=== PATIENT | female | born 1975 | race Caucasian/White ===

== ENCOUNTER 2018-07-28 20:54 | Inpatient (IN) | payer MEDICAID ==
[~2018-07-28] VITALS: Ht 162.6 cm; Wt 85.7 kg
[2018-07-28 21:00] VITALS: BP_SYST 125
--- NOTE | 2018-07-28 21:20 | NUR ---
Placed in room 1. Placed on pvc monitor, blood pressure machine and pulse oximeter. To gown for exam. Side rails up. Report given to Cherelle HARP.
--- NOTE | 2018-07-28 21:25 | NUR ---
Patient came in with acute pain which started on the L side which radiates to the upper back. Pt noticed the pain while she was driving. She states she also has a DAMON which radiates to the right of her face. Patient denies N/V/D. No other complaints/injuries noted. Will cont. to monitor.
--- NOTE | 2018-07-28 21:30 | NUR ---
ER at bedside examining patient.
--- NOTE | 2018-07-28 21:45 | NUR ---
# 20 gauge angiocath placed to RAC. Use of asceptic technique. Opsite placed over site. Blood return noted. Blood for lab drawn from site. Flushed with 10 cc of normal saline. No evidence of infiltration noted. Patient tolerated well.
[2018-07-28] MEDS ORDERED: ASPIRIN 81 MG TAB.CHEW PO ONE (22:30)
[2018-07-28] MEDS ORDERED: ACETAMINOPHEN 325 MG TABLET PO ONE (22:30)
--- NOTE | 2018-07-28 22:30 | NUR ---
Patient medicated with ASA and tylenol PO per MD order. Patient tolerated well. WIll continue to monitor.
[2018-07-28 23:01] LABS: BASOPHILS # (AUTO) 0.1 K/uL (0.0-0.2); BASOPHILS % (AUTO) 0.7 % (0.0-2.0); EOSINOPHILS # (AUTO) 0.1 K/uL (0.0-0.4); EOSINOPHILS % (AUTO) 1.3 % (0.0-4.0); HEMATOCRIT 41.7 % (36-48); HEMOGLOBIN 14.1 g/dL (12.0-16.0); LYMPHOCYTES % (AUTO) 21.9 % (20.5-51.5); MEAN CORPUSCULAR HEMOGLOBIN 31 pg (27-31); MEAN CORPUSCULAR HGB CONC 34 % (32-36); MEAN CORPUSCULAR VOLUME 92 fL (79.0-98.0); MONOCYTES # (AUTO) 0.4 K/uL (0.0-1.0); MONOCYTES % (AUTO) 4.5 % (1.7-9.3); NEUTROPHILS # (AUTO) 6.8 K/uL (1.8-7.7); NEUTROPHILS % (AUTO) 71.6 % (40.0-70.0); PLATELET COUNT (AUTO) 362 K/uL (130-430); RED BLOOD CELL COUNT(AUTO) 4.54 MIL/uL (4.2-6.2); RED CELL DISTRIBUTION WIDTH 12.1 % (9.0-15.0); WHITE BLOOD COUNT (AUTO) 9.4 K/uL (4.8-10.8)
[2018-07-28 23:38] LABS: CALCIUM 8.9 mg/dL (8.4-11.0); CREATININE 0.8 mg/dL (0.55-1.30); POTASSIUM 3.8 mmol/L (3.5-5.1)
[2018-07-28 23:43] LABS: ALBUMIN 3.8 g/dL (3.4-4.8); TOTAL BILIRUBIN 0.4 mg/dL (0.0-1.0)
[2018-07-28 23:50] LABS: INR 0.9 (0.8-1.2); PROTHROMBIN TIME 9.6 SECS (9.5-12.5)
[2018-07-28 23:56] LABS: BILIRUBIN,URINE NEGATIVE (NEGATIVE); BLOOD, URINE TRACE (NEGATIVE); CLARITY/URINE CLEAR (CLEAR); COLOR,URINE YELLOW (YELLOW); GLUCOSE,URINE NEGATIVE (NEGATIVE); KETONES,URINE NEGATIVE (NEGATIVE); LEUKOCYTE ESTERASE ,URINE TRACE (NEGATIVE); NITRITE, URINE NEGATIVE (NEGATIVE); PROTEIN URINE NEGATIVE (NEGATIVE); UROBILINOGEN,URINE 0.2 (0.2-1.0)
[2018-07-29] MEDS ORDERED: MORPHINE 2 MG/ML INJ. SYRINGE IVP PRN ×3 (00:15→09:45)
--- NOTE | 2018-07-29 00:24 | NUR ---
Patient will be admitted to care of Dr. Ortega. Admitted to unit TELE. Will go to room 135 . Belongings list completed. Summary report printed. Report will be given at bedside.
[2018-07-29 00:25] LABS: BACTERIA,URINE FEW /HPF (None Seen)
[2018-07-29 00:30] VITALS: BP_SYST 126
--- NOTE | 2018-07-29 00:30 | NUR ---
ADMISSION NOTE Received patient from ER via betzy, received report from LOYD FAJARDO. Patient admitted with diagnosis of CHEST PAIN. Patient oriented to hospital routine, call light, toileting and safety-patient verbalized understanding.
--- NOTE | 2018-07-29 00:30 | NUR ---
Transfer to TELE via ACLS protocol. Licensed nurse present. IV present no signs or symptoms of infiltration. Report given to LOYD Shaw.
[2018-07-29 00:31] VITALS: BP_SYST 126
--- NOTE | 2018-07-29 01:10 | NUR ---
OPENING NOTE RECEIVED PT ENDORSEMENT REPORT FROM NURSE BUTTERFIELD AT BEDSIDE. PT IS AOX4, PT RESTING COMFORTABLY IN BED WITH EYES OPEN. PT'S CHEST RISE EVEN AND UNLABORED. NO COMPLAINTS OF PAIN AT THIS TIME. NO DISTRESS NOTED. NO RESPIRATORY DISTRESS NOTED. PT'S IV ON RIGHT AC 20G. PT ORIENTED TO HOSPITAL ROOM, PT INSTRUCTED HOW TO USE CALL LIGHT AND ROOM PHONE, PT VERBALIZED UNDERSTANDING. PT AWARE TO CALL FOR ASSISTANCE. PT INSTRUCTED ON PT SAFETY, PT VERBALIZED UNDERSTANDING. SAFETY MEASURES IN PLACE, CALL LIGHT AND ROOM PHONE WITHIN REACH, BED BRAKES LOCKED, BED ALARM ON, BED RAILS UP X2, BED IN LOWEST POSITION, BEDSIDE TABLE WITHIN REACH. NO NEEDS AT THIS TIME, WILL CONTINUE TO MONITOR PT AND CONTINUE POC.
--- NOTE | 2018-07-29 01:54 | NUR ---
CONSULT CONSULT CALLED FOR DR. CHENG I SPOKE WITH NORA EXCHANGE REQUESTING CONSULT: DR. BINGHAM REASON FOR CONSULT: CHEST PAIN DISTRICT EXTENSION SERVICE AGENT PHONE NUMBER: [phone]
--- NOTE | 2018-07-29 02:51 | NUR ---
RN ROUNDS PT RESTING COMFORTABLY IN BED WITH EYES CLOSED. PT'S CHEST RISE EVEN AND UNLABORED. NO DISTRESS NOTED. NO RESPIRATORY DISTRESS NOTED. SAFETY MEASURES IN PLACE, CALL LIGHT AND ROOM PHONE WITHIN REACH, BED BRAKES LOCKED, BED ALARM ON, BED RAILS UP X2, BED IN LOWEST POSITION, BEDSIDE TABLE WITHIN REACH. NO NEEDS AT THIS TIME, WILL CONTINUE TO MONITOR PT AND CONTINUE POC.
--- NOTE | 2018-07-29 04:12 | NUR ---
RN ROUNDS PT RESTING COMFORTABLY IN BED WITH EYES CLOSED. PT'S CHEST RISE EVEN AND UNLABORED. NO DISTRESS NOTED. NO RESPIRATORY DISTRESS NOTED. NO S/S OF PAIN NOTED. NO NEEDS AT THIS TIME. SAFETY MEASURES IN PLACE. WILL CONTINUE TO MONITOR PT AND CONTINUE POC.
--- NOTE | 2018-07-29 06:55 | NUR ---
CLOSING NOTE WILL ENDORSE PT REPORT TO DAY SHIFT NURSE AT BEDSIDE. PT IS AOX4, PT RESTING COMFORTABLY IN BED WITH EYES CLOSED. PT'S CHEST RISE EVEN AND UNLABORED. NO COMPLAINTS OF PAIN THROUGHOUT THE SHIFT. NO DISTRESS NOTED, NO RESPIRATORY DISTRESS NOTED THROUGHOUT SHIFT. PT'S IV SL. ALL NEEDS MET THROUGHOUT SHIFT. ALL SCHEDULED MEDICATIONS ADMINISTERED SCHEDULED, PT TOLERATED WELL. PT ORIENTED TO HOSPITAL ROOM, PT INSTRUCTED HOW TO USE CALL LIGHT AND ROOM PHONE, PT VERBALIZED UNDERSTANDING. PT AWARE TO CALL FOR ASSISTANCE. PT INSTRUCTED ON PT SAFETY, PT VERBALIZED UNDERSTANDING. SAFETY MEASURES IN PLACE, CALL LIGHT AND ROOM PHONE WITHIN REACH, BED BRAKES LOCKED, BED ALARM ON, BED RAILS UP X2, BED IN LOWEST POSITION, BEDSIDE TABLE WITHIN REACH. WILL CONTINUE TO MONITOR PT AND CONTINUE POC.
[2018-07-29 08:00] VITALS: BP_SYST 128
--- NOTE | 2018-07-29 08:00 | NUR ---
initial notes rec patient awake alert with ivl on the r ac intact. no infiltration noted. denies chest pain when asked. resp easy and unlabored. call light within reached and knows when to call for assistance. bed in low position and side rails up and locked.
[2018-07-29] MEDS ORDERED: ENOXAPARIN SODIUM 40 MG/0.4 ML SYRINGE SUBCUT ONE (09:00)
[2018-07-29] MEDS ORDERED: ACETAMINOPHEN 500 MG TABLET ONE ×2 (09:10)
[2018-07-29] MEDS ORDERED: ACETAMINOPHEN 500 MG TABLET PO ONE (09:15)
[2018-07-29] MEDS ORDERED: LORazepam 2 MG/ML VIAL IVP PRN (09:45)
[2018-07-29] MEDS ORDERED: DOCUSATE SODIUM 100 MG CAPSULE PO PRN (09:45)
[2018-07-29] MEDS ORDERED: POTASSIUM CHLORIDE 20 MEQ TAB.PRT.SR PO PRN (09:45)
[2018-07-29] MEDS ORDERED: ONDANSETRON HCL 4 MG/2 ML VIAL IVP PRN (09:45)
[2018-07-29] MEDS ORDERED: MAGNESIUM SULFATE 50 ML IV PRN (09:45)
[2018-07-29] MEDS ORDERED: ZOLPIDEM TARTRATE 5 MG TABLET PO PRN (09:45)
[2018-07-29] MEDS ORDERED: MUPIROCIN 2% TOPICAL OINTMENT 22 GM NS PRN (09:45)
[2018-07-29] MEDS ORDERED: SUMAtriptan SUCCINATE 50 MG TABLET PO ONE (09:45)
[2018-07-29] MEDS ORDERED: ACETAMINOPHEN 325 MG TABLET PO PRN (09:45)
[2018-07-29] MEDS ORDERED: PANTOPRAZOLE SODIUM 40 MG TAB PO ONE (10:00)
--- NOTE | 2018-07-29 10:42 | NUR ---
DC Planning: Updated pt's status and faxed FS / ED notes to Shawn at [facility] fax# [phone]. Informed dr. Ortega, the plan for Stress Test is not approved. Shawn will schedule the procedure for out patient this pm or tomorrow. Dr Ortega to revaluate for the disposition.
--- NOTE | 2018-07-29 10:54 | NUR ---
DC Planning: Updated pt's status and faxed FS / ED notes to Shawn at [facility] fax# [phone]. Informed dr[address] Ortega, the plan for Stress Test is not approved. Shawn will schedule the procedure for out patient this pm or tomorrow. Dr Ortega to revaluate for the disposition.
[2018-07-29 12:06] VITALS: BP_SYST 128
[2018-07-29 12:31] VITALS: BP_SYST 118
--- NOTE | 2018-07-29 13:12 | NUR ---
DC Planning: Per Jennifer/[facility]: transfer pt to [facility], room # 320B RN to report # [phone], address: [address] [place] [id number]. Booked ALS transfer with Nisa at [facility],#[phone], She provided the first available fruit or nut picker time at 2:45pm. LOYD Barriga made aware. Addendum: 07/29/18 at 1340 by Marleen Mares RN >> CM notified pt in room, she agreed with the transfer.
--- NOTE | 2018-07-29 15:00 | NUR ---
rounds dr kapoor was called and informed that patient will be transferred to contracted hospital at [facility]. report given to rosette matute at [facility]. awaiting for ambulance.
[2018-07-29 16:39] VITALS: BP_SYST 121
--- NOTE | 2018-07-29 16:41 | NUR ---
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 will accompany patient in the ambulance. no sob noted. no c/o chest pain . ambulatory with steady gait. stable and needs attended.
[2018-07-29] MEDS ORDERED: HEPARIN SODIUM,PORCINE 5000 UNITS/ML VIAL SUBCUT SCH (21:00)
[2018-07-30] MEDS ORDERED: PANTOPRAZOLE SODIUM 40 MG TAB PO SCH (09:00)
== END 2018-07-29 16:50 | disposition short-term general hospital (02) | DRG 243 ==
LOC: SED 20:54 → STU 07-29 00:12
PROVIDERS: ADMIT General Practice; ATTEND General Practice
DX: K21.9 Gastro-esophageal reflux disease without esophagitis (principal); E66.9 Obesity, unspecified; F41.9 Anxiety disorder, unspecified; G43.919 Migraine, unspecified, intractable, without status migrainosus; M19.90 Unspecified osteoarthritis, unspecified site; Z68.32 Body mass index [BMI] 32.0-32.9, adult; Z83.438 Family history of other disorder of lipoprotein metabolism and other lipidemia
CPT/HCPCS: 36415; 71045; 80053; 81000-TC; 81025; 84484; 85025; 85610-TC; 85730-TC; 87086; 90656; 93005; 99285; J1650

== ENCOUNTER 2018-12-09 23:47 | Emergency (ER) | payer MEDICAID ==
[~2018-12-09] VITALS: Ht 162.6 cm; Wt 88.5 kg
[2018-12-09 23:51] VITALS: BP_SYST 128
[2018-12-10] MEDS ORDERED: KETOROLAC TROMETHAMINE 60 MG/2 ML VIAL IM ONE
[2018-12-10 01:38] VITALS: BP_SYST 108
== END 2018-12-10 01:38 | disposition home or self-care (01) ==
LOC: SED 23:47
DX: S29.012A Strain of muscle and tendon of back wall of thorax, initial encounter (principal); G43.909 Migraine, unspecified, not intractable, without status migrainosus; R03.0 Elevated blood-pressure reading, without diagnosis of hypertension; X58.XXXA Exposure to other specified factors, initial encounter; Y93.89 Activity, other specified; Y92.89 Other specified places as the place of occurrence of the external cause; Y99.8 Other external cause status
CPT/HCPCS: 71045; 81002; 81025; 93005; 96372; 99283; J1885

== ENCOUNTER 2019-07-02 13:48 | Emergency (ER) | payer MEDICAID ==
[~2019-07-02] VITALS: Ht 165.1 cm; Wt 89.4 kg
[2019-07-02 14:08] VITALS: BP_SYST 124
[2019-07-02] MEDS ORDERED: LORazepam 2 MG/ML VIAL IM ONE (14:45)
[2019-07-02 15:01] VITALS: BP_SYST 124
== END 2019-07-02 15:00 | disposition home or self-care (01) ==
LOC: SED 13:48
DX: F41.9 Anxiety disorder, unspecified (principal)
CPT/HCPCS: 99283

== ENCOUNTER 2019-11-26 16:50 | Emergency (ER) | payer MEDICAID ==
[~2019-11-26] VITALS: Ht 162.6 cm; Wt 86.2 kg
[2019-11-26 16:58] VITALS: BP_SYST 137
--- NOTE | 2019-11-26 17:31 | NUR ---
Patient to ER bed 05 to gown for evaluation. Side rails up.
--- NOTE | 2019-11-26 17:45 | NUR ---
pt arrives from home w/ increasing DAMON unrelived by over the counter meds
--- NOTE | 2019-11-26 17:56 | NUR ---
ER at bedside examining patient.
--- NOTE | 2019-11-26 17:57 | NUR ---
Patient transported to radiology via , accompanied by radiation oncology manager.
[2019-11-26] MEDS ORDERED: NACL 0.9% 1,000 ML IV ONE (18:45)
[2019-11-26] MEDS ORDERED: KETOROLAC TROMETHAMINE 15 MG VIAL IVP ONE (18:45)
[2019-11-26] MEDS ORDERED: PROCHLORPERAZINE EDISYLATE 10 MG/2 ML VIAL IVP ONE (18:45)
[2019-11-26] MEDS ORDERED: MAGNESIUM SULFATE 50 ML IV ONE (18:45)
--- NOTE | 2019-11-26 19:22 | NUR ---
Report given to Freddy HARP. Pt is in stable condition
--- NOTE | 2019-11-26 19:38 | NUR ---
Pt verbalizes improvement in H/A. No needs verbalized at this time.
[2019-11-26 21:54] VITALS: BP_SYST 128
--- NOTE | 2019-11-26 21:54 | NUR ---
Patient given written and verbal discharge instructions and verbalizes understanding. ER MD discussed with patient the results and treatment provided. Patient in stable condition. ID arm band removed. IV catheter removed intact and dressing applied, no active bleeding. Rx of Magnesium Gluconate and Vitamin B-12 given. Patient educated on pain management and to follow up with PMD. Pain Scale 0/10. Opportunity for questions provided and answered. Medication side effect fact sheet provided.
== END 2019-11-26 21:54 | disposition home or self-care (01) ==
LOC: SED 16:50
DX: G43.901 Migraine, unspecified, not intractable, with status migrainosus (principal)
CPT/HCPCS: 70450; 96365; 96375; 99284; J0780; J1885; J3475; J7030

== ENCOUNTER 2021-11-15 07:49 | Emergency (ER) | payer MEDICAID, SELFPAY ==
[~2021-11-15] VITALS: Ht 157.5 cm; Wt 90.7 kg
[2021-11-15 08:46] VITALS: BP_SYST 140
--- NOTE | 2021-11-15 09:30 | NUR ---
Patient triaged and placed in waiting room. VSS and patient appears in no acute distress at this time. Accompanied by self, awaiting available bed, and MD notified of need for MSE.
[2021-11-15] MEDS ORDERED: IBUP-1969 PO (10:00)
--- NOTE | 2021-11-15 10:00 | NUR ---
KANIKA Parada at bedside examining patient.
--- NOTE | 2021-11-15 10:15 | NUR ---
pt returned to ED lobby tolerated XR well.
== END 2021-11-15 11:20 | disposition home or self-care (01) ==
LOC: SED 07:49
DX: S40.012A Contusion of left shoulder, initial encounter (principal); Z79.899 Other long term (current) drug therapy; W22.8XXA Striking against or struck by other objects, initial encounter; Y93.89 Activity, other specified; Y92.89 Other specified places as the place of occurrence of the external cause; Y99.8 Other external cause status
CPT/HCPCS: 73030; 99283

== ENCOUNTER 2022-05-17 06:27 | Emergency (ER) | payer MEDICAID ==
[~2022-05-17] VITALS: Ht 160 cm; Wt 90.7 kg
[~2022-05-17 06:27] MED LIST: IBUP-1969 PO
--- NOTE | 2022-05-17 06:35 | NUR ---
Placed in room 8 . Placed on teletypesetter monitor, blood pressure machine and pulse oximeter. To gown for exam. Side rails up.Triage at the bedside by Primary nurse Kimberly.
[2022-05-17 06:38] VITALS: BP_SYST 157
[2022-05-17 06:53] VITALS: BP_SYST 157
[2022-05-17 07:58] LABS: BASOPHILS % (AUTO) 0.6 % (0.0-2.0); EOSINOPHILS # (AUTO) 0.5 K/uL (0.0-0.4); HEMATOCRIT 37.5 % (36-48); HEMOGLOBIN 12.7 g/dL (12.0-16.0); LYMPHOCYTES # (AUTO) 1.7 K/uL (1.0-5.5); LYMPHOCYTES % (AUTO) 33.6 % (20.5-51.5); MEAN CORPUSCULAR HEMOGLOBIN 28 pg (27-31); MEAN CORPUSCULAR HGB CONC 34 % (32-36); MEAN CORPUSCULAR VOLUME 83 fL (79.0-98.0); MONOCYTES # (AUTO) 0.3 K/uL (0.0-1.0); MONOCYTES % (AUTO) 6.8 % (1.7-9.3); NEUTROPHILS # (AUTO) 2.5 K/uL (1.8-7.7); PLATELET COUNT (AUTO) 281 K/uL (130-430); RED BLOOD CELL COUNT(AUTO) 4.53 MIL/uL (4.2-6.2); RED CELL DISTRIBUTION WIDTH 14.8 % (9.0-15.0); WHITE BLOOD COUNT (AUTO) 5.1 K/uL (4.8-10.8)
--- NOTE | 2022-05-17 08:15 | NUR ---
PT REMAIN STABLE. NO CHANGE IN CONDITION.
[2022-05-17 08:16] LABS: ANION GAP 11 (5-15); CALCIUM 8.8 mg/dL (8.4-11.0); CHLORIDE 105 mmol/L (98-107); CREATININE 0.75 mg/dL (0.55-1.30); GLUCOSE 101 mg/dL (70-99); POTASSIUM 3.4 mmol/L (3.5-5.1); SODIUM SERUM 140 mmol/L (136-145); UREA NITROGEN, BLOOD 10 mg/dL (8-21)
[2022-05-17 08:26] LABS: ALANINE AMINOTRANSFERASE 50 U/L (12-78); ALBUMIN 3.2 g/dL (3.4-4.8); ASPARTATE AMINOTRANSFERASE 33 U/L (10-37); TOTAL BILIRUBIN 0.1 mg/dL (0.0-1.0)
[2022-05-17 08:32] LABS: GFR AFRICAN AMERICAN 107 mL/min (>90)
--- NOTE | 2022-05-17 09:16 | NUR ---
no change in condition. to continue monitor. pending dc.
[2022-05-17] MEDS ORDERED: PHEDM120 PO (09:23)
[2022-05-17] MEDS ORDERED: IBUP-1969 PO (09:23)
--- NOTE | 2022-05-17 09:37 | NUR ---
Sanjana collected and sent.
--- NOTE | 2022-05-17 10:03 | NUR ---
Patient given written and verbal discharge instructions and verbalizes understanding. ER MD discussed with patient the results and treatment provided. Patient in stable condition. ID arm band removed. Rx of MOTRIN given. Patient educated on pain management and to follow up with PMD. Pain Scale . Opportunity for questions provided and answered. Medication side effect fact sheet provided.
[2022-05-17 10:04] VITALS: BP_SYST 125
== END 2022-05-17 10:03 | disposition home or self-care (01) ==
LOC: SED 06:27
DX: U07.1 COVID-19 (principal); R07.9 Chest pain, unspecified; R03.0 Elevated blood-pressure reading, without diagnosis of hypertension; Z79.899 Other long term (current) drug therapy
CPT/HCPCS: 36415; 71045; 80053; 81025; 83880; 84484; 85025; 85379; 93005; 99285